=== PATIENT | female | born 1975 | race Caucasian/White ===

== ENCOUNTER 2020-08-11 10:00 | Outpatient (CLI) | payer BC, SELFPAY ==
--- NOTE | 2020-08-11 08:30 | DI.RAD_ITS ---
EXAM: XR KNEE LT 3V AP,LAT,MICHAEL CLINICAL HISTORY: left knee pain. TECHNIQUE: 2D digital imaging was performed. COMPARISON: No exams were available for comparison FINDINGS: There is evidence of previous ACL surgery. There is no evidence of fracture or obvious joint effusio n. There is some degenerative narrowing of the medial compartment. Also what appears to be small in tra-articular loose bodies within the inter condylar notch. Lateral compartment exhibits normal heig ht. Patellofemoral compartment appears unremarkable. Bone density is normal. IMPRESSION: Previous ACL surgery. Degenerative changes noted in the medial compartment. DATA REPOSITORY: RADIATION DOSE DELIVERED:
== END 2020-08-11 10:01 | disposition home or self-care (01) ==
LOC: DIORS 10:01
PROVIDERS: Visit Provider Student in an Organized Health Care Education/Training Program
DX: M25.562 Pain in left knee (principal); M23.42 Loose body in knee, left knee
CPT/HCPCS: 73562

== ENCOUNTER → 2020-10-25 01:05 | Outpatient (CLI) | payer BC, SELFPAY ==
--- NOTE | 2020-10-25 07:00 | DI.MRI_ITS ---
Exam(s) MR LOWER JOINT LT WO EXAM: MR LOWER JOINT LT WO CLINICAL HISTORY: Meniscus tear,h/o acl reconstruction,internal derangement,m23.92 TECHNIQUE: Multiplanar multisequence MRI of the knee was performed. COMPARISON: CR XR KNEE LT 3V AP,LAT,MICHAEL from 08/11/2020 CR XR KNEE LT 3V AP,LAT,MICHAEL from 08/11/2020 FINDINGS: There is mild artifact related to the ACL fastener screws in the distal femur and tibia. EFFUSION: There is a minimal amount of increased joint fluid. There is no large joint effusion but t here is a Emmanuel cyst in the popliteal fossa which measures approximately 5-6 cm cephalocaudal length by 1.3 cm wide by 1 cm AP. This is partially septated but not ruptured. There is no lung obvious lo ose body within this Emmanuel cyst. However, there are 2 intra-articular loose body within the intercon dylar notch just behind the ACL graft. These measure approximately 4 x 5 millimeters each. Another slightly smaller loose intra-articular body is seen just anterior to the lateral tibial plateau, in t he posterior Hoffa fat pad at this level. MARROW:No fractures. Findings as described below in the medial compartment. There are no significan t osseous lesions. PATELLOFEMORAL COMPARTMENT: The quadriceps tendon is intact. The patellar ligament is intact. There is moderate thinning of the retropatellar cartilage which is mostly below the a quite ower and more prominent over the medial than the lateral facet.No osteochondral defect seen at this level. Th ere is mild edema in the medial aspect of the patella. No intraosseous signal to suggest recent sousa llar dislocation. There are no patellar retinacular tears. CRUCIATE LIGAMENTS: There is some attenuation of the ACL graft but without complete tear and no acute appearing abnormal high signal. There is some impingement upon the lateral aspect of the graft by osteophyte off the inner aspect of the lateral femoral condyle. There are 2 almost a J loose intra-articular bodies within the inter co ndylar notch just medial to this osteophyte, approximately 4-5 millimeters medial and these are intim ately associated with the posterior graft component and anterior to the intact posterior cruciate lig ament. The posterior cruciate ligament itself is intact. MEDIAL COMPARTMENT/MEDIAL MENISCUS: There is a tear in the posterior horn of the medial meniscus whic h violates inferior articular surface and there is mild extrusion. The root of the posterior horn is attenuated but without an obvious tear at this level. No bucket-handle configuration evident. The anterior horn of the medial meniscus is mostly intact. There are significant cartilage findings over the medial femoral condyle including full-thickness thi nning over the weight-bearing surface and posterior weight-bearing surface with subjacent bone edema posteriorly including a defect which may be the parent site of the intra-articular loose bodies. The re are also small degenerative subarticular cysts in the subjacent tibial plateau as well as mild ese ma in the tibial plateau. Marginal osteophytes are noted in the medial compartment MEDIAL COLLATERAL LIGAMENT: Intact LATERAL COMPARTMENT/LATERAL MENISCUS: There is no evidence of obvious lateral meniscal tear.There is multifocal cartilage thinning over the main weight-bearing surface of the lateral femoral condyle, so mewhat less than is seen in the medial femoral condyle. No obvious osteochondral defect at this leve l. No findings in the subjacent lateral tibial plateau nor in the fibular head and neck. ILIOTIBIAL BAND: Intact LATERAL COLLATERAL LIGAMENT COMPLEX: The fibular collateral ligament is intact. The biceps femoris t endon is intact.Popliteus muscle and tendon are intact. IMPRESSION: 1. In this patient has had prior ACL graft surgery the graft appears somewhat attenuated but some rem aining strands are identified there is no associated abnormal high signal to suggest acute tear. The graft attenuation is most probably on a subacute basis. In addition, there is some impingement upon the graft by a marginal osteophyte on the inner aspect of the lateral femoral condyle . 2. Significant degenerative changes in both medial and lateral compartments as described above, inclu ding significant thinning of the hyaline cartilage over both femoral condyles. There is subarticular edema in the posterior aspect of the medial femoral condyle evident. There is a tear in the posteri or horn of the medial meniscus with mild extrusion. Some the findings in the medial meniscus may als o be related to prior surgery/instrumentation. There is no obvious tear of the lateral meniscus. 3. There are 3 loose intra-articular bodies noted. Two of these are adjacent to each other and intim ately associated with the posterior strands of the ACL graft and just anterior to the intact PCL. Th e other loose intra-articular body is just anterior to the lateral tibial plateau, just posterior to the intra-articular Hoffa fat pad at this level. This measures 4 x 3 millimeters, slightly smaller t liang the other 2 intra-articular bodies which are located within the intercondylar notch. 4. There is no prominent joint effusion but there is a nonruptured septated Emmanuel's cyst in the media l popliteal fossa as described above this does not appear to contain intra-articular loose bodies. 5. Findings in the retropatellar cartilage as described above, with moderate thinning of the [place] d cartilage over the mid and medial facets, this mostly at and below the equator. Mild intraosseous edema is seen in the medial aspect of the patella. There are no patellar retinacular tears. DATA REPOSITORY:
== END ==
PROVIDERS: Visit Provider Student in an Organized Health Care Education/Training Program
DX: M25.562 Pain in left knee (principal); M23.92 Unspecified internal derangement of left knee; M17.12 Unilateral primary osteoarthritis, left knee; M23.42 Loose body in knee, left knee
CPT/HCPCS: 73721

== ENCOUNTER 2021-06-20 16:07 | Outpatient (REF) | payer BC, SELFPAY ==
[2021-06-20 17:31] LABS: Abs Immature Grans 0.02 10^3/uL (0.0-0.06); Absolute Basophil Count 0.02 10^3/uL (0.0-0.2); Absolute Eosinophil Count 0.04 10^3/uL (0.0-0.7); Absolute Lymphocyte Count 1.48 10^3/uL (1.2-3.4); Absolute Monocyte Count 0.41 10^3/uL (0.1-0.8); Absolute Neutrophil Count 3.33 10^3/uL (1.2-6.7); Basophils % 0.4; Eosinophils % 0.8; HGB 9.8 g/dL (11.2-15.7); Immature Grans % 0.4; Lymphocytes % 27.9; MCH 22.2 pg (27.0-33.0); MCHC 29.7 % (32.0-36.0); MCV 74.7 fL (80-95); MPV 11.7 fL (8.0-11.0); Monocytes % 7.7; Neutrophils % 62.8; Nucleated RBC 0 %; Platelet Count 364 10^3/uL (130-400); RBC 4.42 10^6/uL (3.93-5.22); RDW 19.9 % (11.7-14.6); RDW-SD 53.7 fL
[2021-06-20 17:52] LABS: ALT 19 U/L (14-59); AST 15 U/L (15-37); Alkaline Phosphatase 56 U/L (46-116); Anion Gap 10.2 mmol/L (3-11); BUN 5 mg/dL (7-18); Bilirubin, Total 0.2 mg/dL (0.2-1.0); CO2 25.8 mmol/L (21.0-32.0); CREATININE 0.7 mg/dL (0.55-1.02); Calcium 9.2 mg/dL (8.5-10.1); Chloride 99 mmol/L (98-107); Glucose 105 mg/dL (74-106); Potassium 4.5 mmol/L (3.5-5.1); Sodium 135 mmol/L (136-145); Total Protein 7.2 g/dL (6.4-8.2)
[2021-06-20 19:42] LABS: Anisocytosis 2+; Diff Comment RBC Morph Reviewed; Hypochromasia 2+; Microcytosis 2+; Poikilocytes 1+
== END 2021-06-20 16:08 | disposition home or self-care (01) ==
LOC: NCHCN 16:07
PROVIDERS: Visit Provider Family Medicine
DX: R10.9 Unspecified abdominal pain (principal)
CPT/HCPCS: 80053; 85025

== ENCOUNTER 2022-04-24 10:20 | Outpatient (REF) | payer BC, SELFPAY ==
--- NOTE | 2022-04-24 09:45 | PAPFT_PTH ---
PATIENT: Renuka Briceno LOC: [facility] U#:[id number] AGE/SX: 46/F ROOM: RE04/24/[address]: Celeste Scott MD : 1975 BED: DIS: 04/24/2022 SPEC #: [id number] RECD: 04/24/22 12:50 STATUS: MARY REQ #: [id number] MAHI: 04/24/22 09:[address]: Celeste Scott DEPT: [facility] Cytology RECD BY: Daniela Mccoy ENTERED: 04/24/22 12:50 SP TYPE: PAPFT OTHR DR: Marian Medley, DELFINA Tissues: 1 - CX/ENDOCX FOR PAP SMEARS Procedures: PAP THIN PREP/UVM Screening HPV DNA PROBE Comments: [id number]
== END 2022-04-24 10:21 | disposition home or self-care (01) ==
LOC: LBN 10:20
PROVIDERS: PCP Nurse Practitioner Family; Visit Provider Obstetrics & Gynecology
DX: Z12.4 Encounter for screening for malignant neoplasm of cervix (principal)
CPT/HCPCS: 88142; 87624

== ENCOUNTER 2022-05-01 02:58 | Outpatient (CLI) | payer BC, SELFPAY ==
[2022-05-01 12:06] LABS: Abs Immature Grans 0.02 10^3/uL (0.0-0.06); Absolute Basophil Count 0.03 10^3/uL (0.0-0.2); Absolute Eosinophil Count 0.13 10^3/uL (0.0-0.7); Absolute Lymphocyte Count 2.76 10^3/uL (1.2-3.4); Absolute Neutrophil Count 2.18 10^3/uL (1.2-6.7); Basophils % 0.5; Eosinophils % 2.2; HCT 35.7 % (36.0-46.0); HGB 11.6 g/dL (11.2-15.7); Immature Grans % 0.3; Lymphocytes % 47.4; MCH 27.6 pg (27.0-33.0); MCHC 32.5 % (32.0-36.0); MCV 85 fL (80-95); MPV 10.2 fL (8.0-11.0); Neutrophils % 37.6; Platelet Count 279 10^3/uL (130-400); RDW 16.3 % (11.7-14.6); WBC 5.82 10^3/uL (4.4-10.8)
[2022-05-01 12:33] LABS: ALT 24 U/L (14-59); AST 30 U/L (15-37); Albumin 3.9 g/dL (3.4-5.0); Alkaline Phosphatase 68 U/L (46-116); Anion Gap 9.6 mmol/L (3-11); BUN 5 mg/dL (7-18); Bilirubin, Total 0.2 mg/dL (0.2-1.0); CO2 26.4 mmol/L (21.0-32.0); CREATININE 0.7 mg/dL (0.55-1.02); Calcium 8.7 mg/dL (8.5-10.1); Chloride 100 mmol/L (98-107); Estimated GFR 107.28 (mL/min/1.73m2); Glucose 80 mg/dL (74-106); Potassium 3.8 mmol/L (3.5-5.1); Sodium 136 mmol/L (136-145); Total Protein 7.5 g/dL (6.4-8.2)
[2022-05-01 12:54] LABS: Cholesterol 212 mg/dL (<200)
[2022-05-02 10:14] LABS: HBs Antibody, Qual Negative (See Note); HBs Antibody, Quant <3.1 mIU/mL (See Note); Hepatitis B Core Antibody Negative (Negative); Hepatitis B surface Ag Negative (Negative); Hepatitis C Ab w Rflx HCV PCR Negative (Negative)
[2022-05-02 11:01] LABS: HIV-1/2 Ag & Ab Screen Negative (Negative)
[2022-05-02 11:11] LABS: Syphilis Serology (RPR) Negative (Negative)
== END 2022-05-01 02:59 | disposition home or self-care (01) ==
LOC: LBO 02:58
PROVIDERS: PCP Nurse Practitioner Family; Visit Provider Obstetrics & Gynecology
DX: Z01.419 Encounter for gynecological examination (general) (routine) without abnormal findings (principal); Z11.3 Encounter for screening for infections with a predominantly sexual mode of transmission; Z11.4 Encounter for screening for human immunodeficiency virus [HIV]; Z11.59 Encounter for screening for other viral diseases
CPT/HCPCS: 36415; 80053; 86704; 86706; 86803; 87340; 87389; 82465; 85025; 86592

== ENCOUNTER 2022-06-02 00:23 | Outpatient (CLI) | payer BC, SELFPAY ==
--- NOTE | 2022-06-02 07:45 | DI.MAMMO_ITS ---
Exam(s) MAMMO SCREENING EXAM: MAMMO SCREENING T1 CLINICAL HISTORY: screening TECHNIQUE: Bilateral full field digital CC and MLO mammographic images were obtained with 3D tomosyn thesis and utilizing computer aided detection (CAD). COMPARISON: None. FINDINGS: Masses/Architectural Distortion: None seen. Microcalcifications: No suspicious pleomorphic-type are seen. Skin Thickening/Nipple Retraction: None. IMPRESSION: 1. No significant interval change with no specific features of malignancy noted. 2. Unless there is more urgent need, screening mammography is recommended, as per [employer] guidelines. Category: Breast Density - Category B - Scattered areas of fibroglandular density Breast density category C or D implies that the patient has dense breast tissue. Dense breast tissue is very common and is not abnormal but dense breast tissue can make it harder to find cancer on a ma mmogram. Also, dense breast tissue may increase their breast cancer risk. This information about the result of the mammogram report was provided to the patient to raise their awareness. Use this report when you speak with the patient about their risks for breast cancer, which includes their family hist ory. At that time, you may recommend for more screening tests (Ultrasound or MRI) as they might be us eful based on their risk. A negative radiographic report should not delay biopsy if a dominant or clinically suspicious mass is present. Up to ten percent of cancers are not identified on mammography. A negative report may reinforce clinical impression. Adenosis and dense breasts may obscure an underlying neoplasm. False positive reports average 6 to 10%. Patient will receive a letter notifying them of these results.
== END 2022-06-02 00:43 ==
LOC: DI 00:24
PROVIDERS: PCP Nurse Practitioner Family; Visit Provider Obstetrics & Gynecology
DX: Z12.31 Encounter for screening mammogram for malignant neoplasm of breast (principal)
CPT/HCPCS: 77063; 77067

== ENCOUNTER 2022-07-15 23:50 | Emergency (ER) | payer BC, SELFPAY ==
[2022-07-15 23:56] VITALS: BP 162/94; PULSE 54; RESP 20; TEMP 36.7; O2SAT 96
[2022-07-16] VITALS (31 sets, daily range): BP systolic 107–162; BP diastolic 72–94; PULSE 42–85; RESP 12–31; O2SAT 92–100
--- NOTE | 2022-07-16 | RT.EKG_ITS ---
APPROVED REPORT Exam: Resting ECG Reason for Exam: abdominal pain Patient Location: E HR:47 bpm ECG Measurements Heart Rate 47 AXIS CA 177 P 31 QRSd 104 QRS 23 QT 506 T 42 QTc 448 Conclusion Sinus bradycardia...rate< 60 Supraventricular bigeminy...bigeminy string>4 w/ SV complexes Physician: Sinus bradycardia, rate 47, QTc registered as minimally prolonged at 506, however QTc everett ections are within normal limits. No STEMI. No significant ST elevation or depressions.
--- NOTE | 2022-07-16 | DI.CT_ITS ---
Exam(s) CT ABDOMEN PELVIS CTA EXAM: CT ABDOMEN PELVIS CTA CLINICAL HISTORY: generalized abdominal pain, r/o mesenteric ischemi. TECHNIQUE: Imaging Protocol: Axial computed tomography images with coronal and sagittal reformatted images were created and reviewed CONTRAST MATERIAL: Intravenous: Omnipaque 350 Contrast volume:100 ml Oral: None COMPARISON: No exams were available for comparison FINDINGS: ABDOMEN: There is no evidence of abdominal aortic aneurysm nor dissection.There is no aneurysmal dilatation of the common iliac arteries.The celiac and superior mesenteric arteries are patent.Renal arteries sousa nt. Common iliac arteries patent. External iliac arteries patent. Common femoral arteries patent. Internal iliac arteries patent. Heart size normal. No pericardial effusion seen. There is evidence of previous gastric surgery, possibly bariatric. Mild mesenteric swirl sign noted left of center and some mesenteric edema. LIVER: There are no focal hepatic lesions nor dilatation of intrahepatic ducts. GALLBLADDER/BILIARY: Gallstones noted. No gallbladder wall edema. CBD not dilated. PANCREAS: No evidence of pancreatic mass nor dilatation of the pancreatic duct. SPLEEN: Spleen size upper normal. Splenic and portal veins are patent. ADRENALS: There are no significant adrenal masses. KIDNEYS: No cysts evident. No calculi nor hydronephrosis. No solid renal masses. ABDOMINAL AORTA: The abdominal aorta is not enlarged. LYMPH NODES: There is no retroperitoneal nor para-aortic adenopathy. No obvious mesenteric masses. ABDOMINAL WALL: No evidence of significant anterior abdominal wall hernia. GI: There is no evidence of bowel obstruction, free air, nor abscess. PELVIS: LYMPH NODES: There is no intrapelvic nor inguinal adenopathy. GI: No evidence of appendicitis.No evidence of sigmoid diverticulitis. URINARY BLADDER: No calculi nor masses evident REPRODUCTIVE: Large 5 x 6 cm uterine fibroid. No obvious adnexal masses. OSSEOUS: No significant osseous lesions. No fractures. Chronic disc space narrowing L4-5. IMPRESSION: 1. No evidence of abdominal aortic aneurysm nor dissection. No occluded mesenteric arteries. 2. There is evidence of prior gastric surgery, possibly bariatric. There is a mild mesenteric swirl sign. Some mesenteric edema is noted left of center. No bowel obstruction. No free air. 3. Cholelithiasis. No evidence of acute cholecystitis. 4. Large right fibroid measuring 5 x 6 cm. First read by Henrry ScoreStreak. Called by myself to ER 07/16/2022 6:40 p.m. RADIATION DOSE DELIVERED: 799.37mGy.cm Total DLP DATA REPOSITORY: All CT scans at this facility are submitted to the National Radiology Data Registry (NRDR) Dose Index Registry (DIR) with the [employer] ([employer]). RADIATION OPTIMIZATION: All CT scans at this facility use at least one of these dose optimization te chniques: automated exposure control; mA and/or kV adjustment per patient size (includes targeted exa ms where dose is matched to clinical indication); or iterative reconstruction.
--- NOTE | 2022-07-16 00:06 | ED.GENADUL_ITS ---
Discharge Plan Disposition Patient Disposition: Home Condition: Good Discharge Details Clinical Impression: Abdominal discomfort Primary Care Provider: Marian Medley ED Provider: Garrick Dang Home Meds and New Rx's Prescriptions: Continued multivitamin [One-A-Day Essential] Tablet 1 tab PO DAILY lamotrigine [Lamictal] 100 mg tablet 200 mg PO DAILY Patient Comments: 04/24/22- Pt reports lamictal 200 mg po Latuda 60 mg tablet 100 mg PO DAILY Patient Comments: 05/16/22- pt reports latuda 100 mg Rx Instructions: must administer with food (at least 350 calories) lidocaine 5 % ointment 1 applic topical TID Qty: 35.44 0RF quetiapine [Seroquel] 25 mg tablet 25 mg PO DAILY clonazepam 0.5 mg tablet 0.5 mg PO DAILY PRN (Reason: Manic disorder) Qty: 5 0RF Discharge Instructions Instructions: Abdominal Pain (ED) Additional Instructions: At this time your CT scan shows no evidence of significant acute process necessitating emergent surgical intervention. Your pain has resolved, and her repeat abdominal exam is very reassuring. That being said, please monitor your symptoms closely. If you notice any worsening of your symptoms, or any new symptoms such as vomiting, diarrhea, fever, chills, shortness of breath, chest pain, numbness, weakness, or fainting , please return immediately to the emergency department for reevaluation. Please follow up with your primary care provider as soon as possible for reassessment and reevaluation. As always, it was a pleasure participating in your medical care today. Referrals: Marian Medley NP [Primary Care Provider] - Celeste Scott MD [ [facility] STAFF PHYSICIAN] - Medical Decision Making This is a pleasant 46-year-old female with a past medical history of Talon-en-Y procedure for gastric bypass, myomectomy for uterine fibroids, bipolar disorder, who presents today for evaluation of abdominal pain. Patient states that she has had abdominal pain for the past 2 years which is gradually been worsening. She has seen her primary care provider multiple times during the course of this pain. Patient states that over the last week pain has been worsening, and then tonight it got notably worse. She had a few episodes of vomiting, but denies any diarrhea. She does feel slightly constipated. She denies any blood in her vomitus. She denies any chest pain, tearing or ripping sensation, fever or chills. She denies any urinary complaints. She does state that she has a hemorrhoid which is made slightly worse when she uses the bathroom. She has had a recent change in some of her medications, but she is not able to specify which ones. She denies any other complaints at this time. No other modifying factors. Exam demonstrates a well-appearing female, but she does appear to be in some mild distress secondary to her abdominal discomfort. Physical exam of the abdomen demonstrates diffuse tenderness throughout, no guarding or rebound though. Negative Rovsing side. No pain at McBurney's point. Negative Rowley sign. No CVA tenderness. There does appear to be some mild focality in the left lower quadrant. Differential is quite broad, as there appears to be a notable chronic component with an acute exacerbation. Differential does include worsening uterine fibroids, obstruction, diverticulitis. Less likely mesenteric adenitis or mesenteric ischemia. She denies any vaginal bleeding or discharge. Symptoms appear clinically inconsistent at this time with ovarian torsion, tubo- ovarian abscess, or other significant pelvic pathology. There was no significant lower pelvic tenderness on palpation. Due to the patient's pain and symptomatology we we will treat the patient's pain, gently rehydrate, get a CT scan for further assessment of acute life-threatening etiologies, monitor closely and reassess. 1:30 AM Laboratory work-up is returned, no white count or bandemia. Lactate is elevated at 2.4, electrolytes are stable. Potassium slightly low though at 3.2, sodium stable at 135. Troponin normal. Lipase normal. I did reassess the patient, her pain is notably improved after the Toradol, and has diminished from a 9 out of 10 to a 2 out of 10. She feels much more comfortable. We are pending CT results at this time. I am reassured by her current clinical assessment. 2:[address] scan has returned, CT scan negative for acute process. No evidence of mesenteric ischemia. Patient does have cholelithiasis which she is aware of. She also does have a fairly large leiomyoma, which she is also aware of. She is being followed by Dr. Dano Adames. She is being followed by obstetrics for this. Repeat lactate has returned and is notably normal at 0.5. Patient feels well, patient feels comfortable going home. I had a long discussion with the patient regarding her symptoms. We discussed red flags for which to return. I have extensively reviewed the treatment plan and discharge instructions with the patient. I have addressed all patient concerns at this time. The patient was made aware of what symptoms to monitor for that would warrant a return to the emergency department. Discussed the plan with the patient, they demonstrate verbal understanding and agreement with our assessment and plan at this time. The documentation in this chart was dictated using [employer] dictation software. Please excuse any dictation errors. EKG 00: 12 Sinus bradycardia, rate 47, QTc registered as minimally prolonged at 506, how ever QTc corrections are within normal limits. No STEMI. No significant ST elevation or depressions. FINDINGS: Lungs: No acute infiltrate in either lung base. Aorta: No aortic aneurysm. No aortic dissection. Celiac trunk and mesenteric arteries: No occlusion or significant stenosis. Renal arteries: No occlusion or significant stenosis. Right iliac arteries: No occlusion or significant stenosis. Left iliac arteries: No occlusion or significant stenosis. Liver: No mass. Gallbladder and bile ducts: Cholelithiasis, otherwise normal gallbladder. No biliary tract dilatation. Pancreas: Unremarkable. No mass. No ductal dilation. Spleen: Unremarkable. No splenomegaly. Adrenal glands: Unremarkable. No mass. Kidneys and ureters: No hydronephrosis. No calcified renal or ureteral stones. No perinephric stranding or perinephric fluid. Stomach and bowel: Prior gastric surgery. No generalized ileus or bowel obstruction Appendix: Normal appendix. Intraperitoneal space: No free air. No significant fluid collection. Lymph nodes: No enlarged lymph nodes. Urinary bladder: Unremarkable. No mass. Reproductive: Approximate 3.3 x 3.7 cm uterine leiomyoma. Bones/joints: Degenerative disc disease at the L4-L5 level. Soft tissues: Unremarkable. IMPRESSION: 1. No evidence of mesenteric ischemia. 2. Cholelithiasis, otherwise normal gallbladder. No biliary tract dilatation. 3. Approximate 3.3 x 3.7 cm uterine leiomyoma. Thank you for allowing us to participate in the care of your patient. Dictated and Authenticated by: Luisito Pelayo MD 07/16/2022 2:03 AM Eastern Time ([place] & [place]) HPI General Date/Time Provider Initiated Documentation: 07/15/22 23:55 . HPI Narrative: This is a pleasant 46-year-old female with a past medical history of Talon-en-Y procedure for gastric bypass, myomectomy for uterine fibroids, bipolar disorder, who presents today for evaluation of abdominal pain. Patient states that she has had abdominal pain for the past 2 years which is gradually been worsening. She has seen her primary care provider multiple times during the course of this pain. Patient states that over the last week pain has been worsening, and then tonight it got notably worse. She had a few episodes of vomiting, but denies any diarrhea. She does feel slightly constipated. She denies any blood in her vomitus. She denies any chest pain, tearing or ripping sensation, fever or chills. She denies any urinary complaints. She does state that she has a hemorrhoid which is made slightly worse when she uses the bathroom. She has had a recent change in some of her medications, but she is not able to specify which ones. She denies any other complaints at this time. No other modifying factors. Related Data Home Medications Medication Instructions Recorded Confirmed multivitamin (One-A-Day Essential 1 tab PO DAILY 08/11/20 07/10/22 tablet) lamotrigine 100 mg tablet 200 mg PO DAILY 04/24/22 07/10/22 (Lamictal) lidocaine 5 % topical ointment 1 applic topical TID #35.44 grams 05/16/22 07/10/22 lurasidone 60 mg tablet (Latuda) 100 mg PO DAILY 05/16/22 07/10/22 clonazepam 0.5 mg tablet 0.5 mg PO DAILY PRN Manic disorder 07/10/22 07/10/22 #5 tabs quetiapine 25 mg tablet (Seroquel) 25 mg PO DAILY 07/10/22 07/10/22 Previous Rx's Medication Instructions Recorded lidocaine 5 % topical ointment 1 applic topical TID #35.44 grams 05/16/22 clonazepam 0.5 mg tablet 0.5 mg PO DAILY PRN Manic disorder 07/10/22 #5 tabs Allergies Allergy/AdvReac Type Severity Reaction Status Date / Time No Known Allergies Allergy Verified 07/16/22 00:05 General Stated Complaint: Abd Prob SABRINA: 3 Review of Systems All systems reviewed & are unremarkable except as noted in HPI and below PFSH All Active Problems Abdominal discomfort (Acute) Left ACL tear (Acute) Left knee DJD (Chronic) Depo-Medrol injection: 12/07/2020 Depression (Chronic) Dysmenorrhea (Acute) Tobacco use (Acute) Wants to quit Medical History 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 1 and 2 Internal derangement of left knee (~05/2020) Uterine fibroid with surgical removal 2011 new fibroid noted May 2022, 6x4cm Surgical History H/O myomectomy 2012: very large, the fibroid filled 2 quart containers History of Talon-en-Y gastric bypass 2007 Family History Other Heart disease Social History Smoking/Tobacco Use Status: Current every day Tobacco Type: cigarettes Tobacco: How many years used: 30 Quit status: considering quitting Second Hand Exposure: Yes Smoking risk assessment performed?: Yes Alcohol Intake: former Year quit: 2020 Drug use: Occasionally Substance use type: marijuana Caregiver/Support person: No Household members: significant other Do you need help understanding health information?: Rarely Pets and animals: Yes Pets and animals: dog(s) Sexually active: Yes Do you think of yourself as: straight/heterosexual Current gender identity: female What is your relationship status?: living with partner How often do you talk on the phone with friends or family?: three or more times per week How often do you get together with friends or relatives?: three or more times per week How often do you attend jewish or methodist services?: decline to answer Do you belong to any clubs or organized social groups?: yes Panel score (0-1 are the most socially isolated patients): 3 What type of physical activity do you participate in: walking Duration: 60-90 minutes/day Frequency: 5-6 times per week Leda/Samaritan: None Seatbelt use: sometimes Helmet use: Yes Helmet use: always Drive intox or ride w/intox driver/guide: No Female Reproductive History Menstrual Duration of menses: >10 days control method: none History History 0 Para Hx # Term Pregnancies Multiple births Hx # Pregnancies Ectopic pregnancies AB induced Hx Number of Living Children AB spontaneous Exam Narrative Exam Narrative: 1.Const: Well-nourished, Well-developed, appearing stated age 2.Eyes: PERRL, no conjunctival injection, and symmetrical lids. 3.ENT: Atraumatic external nose and ears. Dry MM. Neck: Symmetric, trachea midline, No thyromegaly. 4.CVS: +S1/S2, No murmurs or gallops. Peripheral pulses 2+ and equal in all extremities. Brisk capillary refill in all extremities. 5.RESP: Unlabored respiratory effort. Clear to auscultation bilaterally. No wheezes rales or rhonchi 6.GI: Soft, nondistended, no guarding or rebound. Patient does demonstrate mild tenderness on palpation throughout, with some focality in the left lower quadrant. No evidence of an acute surgical abdomen. No flank or CVA tenderness. 7.MSK: Normocephalic/Atraumatic, Extremities w/o deformity or ttp No cyanosis or clubbing, Normal movement of all extremities 8.Skin: Warm, Dry. No rashes or lesions. 9.Neuro: artillery officer II-XII grossly intact. Sensation grossly intact, no focal neurologic deficits. 10.Psych: (AAO) x3. Appropriate mood and affect Course Vital Signs Vital signs: Vital Signs Temperature 36.7 C 07/15/22 23:56 Pulse 54 L 07/15/22 23:56 Respiratory Rate 20 07/15/22 23:56 Blood Pressure 162/94 H 07/15/22 23:56 Pulse Oximetry 96 07/15/22 23:56 Temperature 36.7 C 07/15/22 23:56 Temperature Source Oral 07/15/22 23:56 Pulse 54 L 07/15/22 23:56 Respiratory Rate 20 07/15/22 23:56 Respiratory Effort Normal 07/16/22 00:04 Blood Pressure 162/94 H 07/15/22 23:56 Blood Pressure Position Supine 07/15/22 23:56 Pulse Oximetry 96 07/15/22 23:56 Oxygen Delivery Method Room Air 07/15/22 23:56 Oxygen Flow Rate 0 07/15/22 23:56 Pain Level 9 07/15/22 23:56
[2022-07-16 00:29] LABS: Abs Immature Grans 0.03 10^3/uL (0.0-0.06); Absolute Basophil Count 0.02 10^3/uL (0.0-0.2); Absolute Eosinophil Count 0.08 10^3/uL (0.0-0.7); Absolute Lymphocyte Count 1.81 10^3/uL (1.2-3.4); Absolute Monocyte Count 0.59 10^3/uL (0.1-0.8); Basophils % 0.2; Eosinophils % 0.9; HCT 37.7 % (36.0-46.0); HGB 12.2 g/dL (11.2-15.7); Immature Grans % 0.3; Lymphocytes % 20.3; MCH 26.9 pg (27.0-33.0); MCHC 32.4 % (32.0-36.0); MCV 83 fL (80-95); MPV 10.4 fL (8.0-11.0); Monocytes % 6.6; Neutrophils % 71.7; Platelet Count 313 10^3/uL (130-400); RBC 4.54 10^6/uL (3.93-5.22); RDW 15.8 % (11.7-14.6); RDW-SD 47.8 fL; WBC 8.93 10^3/uL (4.4-10.8)
[2022-07-16 00:33] LABS: Lactate 2.4 mmol/L (0.6-1.4)
[2022-07-16 00:46] LABS: ALT 23 U/L (14-59); AST 22 U/L (15-37); Alkaline Phosphatase 66 U/L (46-116); Anion Gap 13.8 mmol/L (3-11); BUN 5 mg/dL (7-18); Bilirubin, Total 0.3 mg/dL (0.2-1.0); CO2 20.2 mmol/L (21.0-32.0); CREATININE 0.9 mg/dL (0.55-1.02); Calcium 8.9 mg/dL (8.5-10.1); Chloride 101 mmol/L (98-107); Estimated GFR 79.35 (mL/min/1.73m2); Glucose 202 mg/dL (74-106); Potassium 3.2 mmol/L (3.5-5.1); Sodium 135 mmol/L (136-145); Total Protein 7.4 g/dL (6.4-8.2)
[2022-07-16] MEDS: Normal Saline 1,000 ML 1000 ML IV (00:47)
[2022-07-16 00:48] LABS: Lipase 32 U/L (16-77); Troponin I < 50 ng/L (<or=60)
[2022-07-16] MEDS: Ketorolac 15 MG/ML VIAL IVP (00:48)
[2022-07-16] MEDS: Normal Saline - Diluent 50 ML VIAL IJ (01:25)
[2022-07-16] MEDS: Omnipaque 350 MG/ML 100 ML BTL IJ (01:25)
--- NOTE | 2022-07-16 02:04 | DI.VRAD_ITS ---
PROCEDURE INFORMATION: Exam: CTA Abdomen and Pelvis With Contrast Exam date and time: 07/16/2022 1:15 AM Age: 46 years old Clinical indication: Generalized abd pain, R/O mesenteric ischemia TECHNIQUE: Imaging protocol: Computed tomographic angiography of the abdomen and pelvis with contrast. 3D rendering (Not supervised by radiologist): MIP and/or 3D reconstructed images were created by the technologist. Contrast material: 350; Contrast volume: 65 ml; Contrast route: INTRAVENOUS (IV); COMPARISON: US PELVIS TRANSVAGINAL 05/16/2022 8:02 AM FINDINGS: Lungs: No acute infiltrate in either lung base. Aorta: No aortic aneurysm. No aortic dissection. Celiac trunk and mesenteric arteries: No occlusion or significant stenosis. Renal arteries: No occlusion or significant stenosis. Right iliac arteries: No occlusion or significant stenosis. Left iliac arteries: No occlusion or significant stenosis. Liver: No mass. Gallbladder and bile ducts: Cholelithiasis, otherwise normal gallbladder. No biliary tract dilatation. Pancreas: Unremarkable. No mass. No ductal dilation. Spleen: Unremarkable. No splenomegaly. Adrenal glands: Unremarkable. No mass. Kidneys and ureters: No hydronephrosis. No calcified renal or ureteral stones. No perinephric stranding or perinephric fluid. Stomach and bowel: Prior gastric surgery. No generalized ileus or bowel obstruction. Appendix: Normal appendix. Intraperitoneal space: No free air. No significant fluid collection. Lymph nodes: No enlarged lymph nodes. Urinary bladder: Unremarkable. No mass. Reproductive: Approximate 3.3 x 3.7 cm uterine leiomyoma. Bones/joints: Degenerative disc disease at the L4-L5 level. Soft tissues: Unremarkable. IMPRESSION: 1. No evidence of mesenteric ischemia. 2. Cholelithiasis, otherwise normal gallbladder. No biliary tract dilatation. 3. Approximate 3.3 x 3.7 cm uterine leiomyoma. Dictated and Authenticated by: Luisito Pelayo MD. Ordering:TERRANCE Mccauley MD
[2022-07-16] MEDS: Potassium Chloride 20 MEQ TABCR 40 MEQ PO (02:19)
[2022-07-16 02:26] LABS: Lactate 0.5 mmol/L (0.6-1.4)
== END 2022-07-16 03:35 | disposition home or self-care (01) ==
PROVIDERS: Emergency Provider Student in an Organized Health Care Education/Training Program; PCP Nurse Practitioner Family
DX: R10.9 Unspecified abdominal pain (principal); Z87.42 Personal history of other diseases of the female genital tract
CPT/HCPCS: 80053; 83690; 93005; 96361; 96374; 96375; 99285; 74174; 81003; 83605; 84484; 85025; 93010; J1885; J3490

== ENCOUNTER 2022-07-27 02:08 | Outpatient (CLI) | payer BC, SELFPAY ==
[2022-07-27 07:50] LABS: Abs Immature Grans 0.02 10^3/uL (0.0-0.06); Absolute Basophil Count 0.03 10^3/uL (0.0-0.2); Absolute Eosinophil Count 0.12 10^3/uL (0.0-0.7); Absolute Lymphocyte Count 2.37 10^3/uL (1.2-3.4); Absolute Neutrophil Count 3.53 10^3/uL (1.2-6.7); Basophils % 0.5; Eosinophils % 1.8; HCT 37.2 % (36.0-46.0); HGB 11.9 g/dL (11.2-15.7); Immature Grans % 0.3; Lymphocytes % 36.1; MCH 26.9 pg (27.0-33.0); MCV 84 fL (80-95); MPV 10.5 fL (8.0-11.0); Monocytes % 7.6; Neutrophils % 53.7; Platelet Count 330 10^3/uL (130-400); RBC 4.43 10^6/uL (3.93-5.22); RDW-SD 49.3 fL; WBC 6.57 10^3/uL (4.4-10.8)
[2022-07-27 08:38] LABS: Hemoglobin A1C 5.9 % (<5.7)
[2022-07-27 08:42] LABS: ALT 23 U/L (14-59); AST 21 U/L (15-37); Albumin 3.7 g/dL (3.4-5.0); Alkaline Phosphatase 61 U/L (46-116); Anion Gap 6.9 mmol/L (3-11); BUN 5 mg/dL (7-18); Bilirubin, Total 0.3 mg/dL (0.2-1.0); CO2 29.1 mmol/L (21.0-32.0); CREATININE 0.8 mg/dL (0.55-1.02); Calcium 8.8 mg/dL (8.5-10.1); Chloride 103 mmol/L (98-107); Estimated GFR 90.83 (mL/min/1.73m2); Glucose 105 mg/dL (74-106); Potassium 4.2 mmol/L (3.5-5.1); Sodium 139 mmol/L (136-145); Total Protein 7.2 g/dL (6.4-8.2); Vitamin B12 352 pg/mL (193-986)
[2022-07-27 09:00] LABS: Vitamin D 25 Total 31.7 ng/mL (30-100)
[2022-07-27 09:29] LABS: Calculated LDL 132 mg/dL (<100); Cholesterol 217 mg/dL (<200); HDL Cholesterol 74 mg/dL (40-60); Triglyceride 58 mg/dL (<150)
== END 2022-07-27 02:09 | disposition home or self-care (01) ==
LOC: LBO 02:08
PROVIDERS: PCP Nurse Practitioner Family; Visit Provider Nurse Practitioner Psychiatric/Mental Health
DX: E78.5 Hyperlipidemia, unspecified (principal); F31.89 Other bipolar disorder; Z79.899 Other long term (current) drug therapy; R79.89 Other specified abnormal findings of blood chemistry; R10.84 Generalized abdominal pain
CPT/HCPCS: 36415; 80053; 80061; 82306; 82607; 83036; 84443; 85025

== ENCOUNTER 2022-07-28 00:56 | Outpatient (CLI) | payer BC, SELFPAY ==
--- NOTE | 2022-07-28 07:30 | DI.CT_ITS ---
Exam(s) CT ABDOMEN PELVIS W EXAM: CT ABDOMEN PELVIS W CLINICAL HISTORY: abnormal abdominal CTA,abd pain, r10.9 TECHNIQUE: Imaging Protocol: Axial computed tomography images with coronal and sagittal reformatted images were created and reviewed CONTRAST MATERIAL: Intravenous: Omnipaque 350 Contrast volume:100 mL Oral: Yes COMPARISON: CT CT ABDOMEN PELVIS CTA from 07/16/2022 FINDINGS: ABDOMEN: Lung Bases: Normal where visualized. Liver: Normal density. No measurable mass. Portal, Superior Mesenteric, and Splenic Veins: Unremarkable. Gallbladder and Biliary Tract: Cholelithiasis. No biliary ductal dilatation. Pancreas: Normal density, no abnormal calcifications or inflammatory process. Spleen: Normal. Adrenals: No masses seen. Kidneys: Normal size, contour and axis. No radiodense stones or obstructive uropathy. No masses seen. Abdominal Aorta: Abdominal portion non-dilated. Mild atherosclerosis. Bowel: Postsurgical changes are seen at the gastroesophageal junction. There is no evidence of bowel obstruction or bowel wall thickening. Appendix is unremarkable. Peritoneal Cavity: No ascites, collection or mesenteric inflammatory response. No free air. Lymph Nodes: Within normal limits. Bones: Within normal limits for the patient's age. Soft Tissues: Unremarkable. PELVIS: Bladder: Incompletely distended but grossly unremarkable. Reproductive Organs: There is an enlarged fibroid uterus. Lymph Nodes: Within normal limits. Bones: Within normal limits for the patient's age. IMPRESSION: No acute abdominal or pelvic process. RADIATION DOSE DELIVERED: 950.13mGy.cm Total DLP DATA REPOSITORY: All CT scans at this facility are submitted to the National Radiology Data Registry (NRDR) Dose Index Registry (DIR) with the [employer] (ACR). RADIATION OPTIMIZATION: All CT scans at this facility use at least one of these dose optimization te chniques: automated exposure control; mA and/or kV adjustment per patient size (includes targeted exa ms where dose is matched to clinical indication); or iterative reconstruction.
[2022-07-28] MEDS: Barium Sulfate 2% W/V-Berry Smoothie 450 ML BTL 900 ML PO (13:37)
[2022-07-28] MEDS: Omnipaque 350 MG/ML 100 ML BTL IJ (13:39)
[2022-07-28] MEDS: Normal Saline Flush 10 ML SYR IVP (13:39)
== END 2022-07-28 01:16 ==
LOC: DI 00:56
PROVIDERS: PCP Nurse Practitioner Family; Visit Provider Nurse Practitioner Family
DX: R10.9 Unspecified abdominal pain (principal); K80.20 Calculus of gallbladder without cholecystitis without obstruction; N85.2 Hypertrophy of uterus
CPT/HCPCS: 74177; J3490

== ENCOUNTER 2022-08-09 10:28 | Outpatient (CLI) | payer BC, SELFPAY ==
[2022-08-09 11:26] LABS: Lithium 0.4 mmol/l (0.6-1.2)
== END 2022-08-09 10:29 | disposition home or self-care (01) ==
LOC: LBO 10:28
PROVIDERS: PCP Nurse Practitioner Family; Visit Provider Nurse Practitioner Psychiatric/Mental Health
DX: F31.11 Bipolar disorder, current episode manic without psychotic features, mild (principal); Z51.81 Encounter for therapeutic drug level monitoring; Z79.899 Other long term (current) drug therapy
CPT/HCPCS: 36415; 80178

== ENCOUNTER 2022-10-12 02:42 | Outpatient (CLI) | payer BC, SELFPAY ==
--- NOTE | 2022-10-12 08:40 | DI.DEXA_ITS ---
Exam(s) XR DEXA BONE DENSITY W/WO GARTH EXAM: XR DEXA BONE DENSITY W/WO GARTH CLINICAL HISTORY: baseline dexa, hx of gastric bypass,Z98.84 TECHNIQUE: Routine DEXA evaluation of the lumbar spine, hip, or forearm. COMPARISON: No exams were available for comparison FINDINGS: Performed on a Hologic unit. Lateral image: No compression fracture evident. Lumbar Spine total T-score: -1.1 Hip total T-score:-0.1 Independent reading at the level of the femoral neck yields T-score of 0.3 Forearm total T-score: -0.6 IMPRESSION: Bone mineral density measures in the osteopenia range. Fracture risk is moderate. Note: Any spine fracture indicates 5x risk for subsequent spine fracture and 2x risk for subsequent h ip fracture. World Health Organization criteria for BMD interpretation classify patients: Normal...... T- Score at or above -1.0 Osteopenic... T- Score between -1.0 and -2.5 Osteoporosis... T-Score at or below -2.5
== END 2022-10-12 03:02 ==
LOC: DI 02:43
PROVIDERS: PCP Nurse Practitioner Family; Visit Provider Nurse Practitioner Family
DX: Z98.84 Bariatric surgery status (principal); Z13.820 Encounter for screening for osteoporosis; M85.89 Other specified disorders of bone density and structure, multiple sites
CPT/HCPCS: 77080

== ENCOUNTER 2022-11-15 09:45 | Outpatient (CLI) | payer BC, SELFPAY ==
[2022-11-15 09:40] LABS: Abs Immature Grans 0.03 10^3/uL (0.0-0.06); Absolute Basophil Count 0.05 10^3/uL (0.0-0.2); Absolute Eosinophil Count 0.09 10^3/uL (0.0-0.7); Absolute Lymphocyte Count 1.95 10^3/uL (1.2-3.4); Absolute Monocyte Count 0.36 10^3/uL (0.1-0.8); Absolute Neutrophil Count 4.99 10^3/uL (1.2-6.7); Basophils % 0.7; Eosinophils % 1.2; HCT 42.4 % (36.0-46.0); HGB 13.9 g/dL (11.2-15.7); Immature Grans % 0.4; Lymphocytes % 26.1; MCH 29.9 pg (27.0-33.0); MCHC 32.8 % (32.0-36.0); MCV 91 fL (80-95); MPV 10.6 fL (8.0-11.0); Monocytes % 4.8; Neutrophils % 66.8; Platelet Count 275 10^3/uL (130-400); RBC 4.65 10^6/uL (3.93-5.22); RDW 15.9 % (11.7-14.6); RDW-SD 52.6 fL; WBC 7.47 10^3/uL (4.4-10.8)
[2022-11-15 10:41] LABS: Iron 86 ug/dL (50-170); Total Iron Binding Capacity 403 ug/dL (250-450); Transferrin Sat 21 % (15-50)
[2022-11-15 10:51] LABS: Ferritin 39 ng/mL (8-252)
[2022-11-15 11:04] LABS: Vitamin B12 197 pg/mL (193-986)
[2022-11-19 14:15] LABS: Methylmalonic Acid 0.47 nmol/mL (<=0.40)
== END 2022-11-15 09:46 | disposition home or self-care (01) ==
LOC: LBO 09:45
PROVIDERS: PCP Nurse Practitioner Family; Visit Provider Nurse Practitioner Family
DX: Z98.84 Bariatric surgery status (principal); D50.8 Other iron deficiency anemias
CPT/HCPCS: 36415; 80186; 82607; 82728; 83540; 83550; 85025; 85045

== ENCOUNTER 2022-12-01 01:44 | Outpatient (CLI) | payer BC, SELFPAY ==
[2022-12-01 12:23] LABS: Lithium 0.6 mmol/l (0.6-1.2)
== END 2022-12-01 01:45 | disposition home or self-care (01) ==
PROVIDERS: PCP Nurse Practitioner Family
DX: F31.11 Bipolar disorder, current episode manic without psychotic features, mild (principal); Z51.81 Encounter for therapeutic drug level monitoring; Z79.899 Other long term (current) drug therapy
CPT/HCPCS: 36415; 80178

== ENCOUNTER 2023-01-12 03:13 | Outpatient (CLI) | payer BC, SELFPAY ==
[2023-01-12 09:32] LABS: Abs Immature Grans 0.02 10^3/uL (0.0-0.06); Absolute Basophil Count 0.04 10^3/uL (0.0-0.2); Absolute Eosinophil Count 0.19 10^3/uL (0.0-0.7); Absolute Lymphocyte Count 2.08 10^3/uL (1.2-3.4); Absolute Neutrophil Count 4.37 10^3/uL (1.2-6.7); Basophils % 0.6; Eosinophils % 2.6; HCT 40.4 % (36.0-46.0); HGB 13.5 g/dL (11.2-15.7); Immature Grans % 0.3; Lymphocytes % 28.9; MCHC 33.4 % (32.0-36.0); MCV 93 fL (80-95); MPV 10.4 fL (8.0-11.0); Monocytes % 6.9; Neutrophils % 60.7; Platelet Count 277 10^3/uL (130-400); RBC 4.35 10^6/uL (3.93-5.22); RDW 13.8 % (11.7-14.6); RDW-SD 47.1 fL; Reticulocyte 1.3 % (0.5-2.4)
[2023-01-12 10:24] LABS: ALT 29 U/L (14-59); AST 18 U/L (15-37); Albumin 3.6 g/dL (3.4-5.0); Alkaline Phosphatase 62 U/L (46-116); BUN 3 mg/dL (7-18); Bilirubin, Total 0.4 mg/dL (0.2-1.0); CREATININE 0.8 mg/dL (0.55-1.02); Chloride 104 mmol/L (98-107); Estimated GFR 90.83 (mL/min/1.73m2); Ferritin 120 ng/mL (8-252); Folate 10.7 ng/mL (8.6-20.0); Glucose 86 mg/dL (74-106); Potassium 4.1 mmol/L (3.5-5.1); Sodium 139 mmol/L (136-145); Vitamin B12 732 pg/mL (193-986)
[2023-01-12 10:51] LABS: Iron 122 ug/dL (50-170); Total Iron Binding Capacity 321 ug/dL (250-450); Transferrin Sat 38 % (15-50)
[2023-01-15 09:12] LABS: Parathyroid Hormone,Intact 37 pg/mL (19-88)
[2023-01-17 16:39] LABS: Thiamine (Vitamin B1), WB 115 nmol/L (70-180)
== END 2023-01-12 03:14 | disposition home or self-care (01) ==
LOC: LBO 03:14
PROVIDERS: PCP Nurse Practitioner Family; Visit Provider Nurse Practitioner Family
DX: E83.10 Disorder of iron metabolism, unspecified (principal); K91.2 Postsurgical malabsorption, not elsewhere classified; R10.9 Unspecified abdominal pain; Z98.84 Bariatric surgery status; D50.8 Other iron deficiency anemias; Z79.899 Other long term (current) drug therapy
CPT/HCPCS: 36415; 80053; 82306; 82607; 82728; 82746; 83540; 83550; 83970; 84425; 85025; 85045

== ENCOUNTER 2023-03-01 04:46 | Outpatient (CLI) | payer BC, SELFPAY | END 2023-03-01 04:47 | disposition home or self-care (01) | LOC: LBO 04:46 | PROVIDERS: PCP Nurse Practitioner Family; Visit Provider Nurse Practitioner Family | DX: F31.11 Bipolar disorder, current episode manic without psychotic features, mild (principal) | CPT/HCPCS: 36415; 80178 ==